=== PATIENT | female | born 1985 | race African-American/Black ===

== ENCOUNTER 2018-05-19 01:14 | Emergency (ER) | payer OTHER ==
[~2018-05-19] VITALS: Ht 162.6 cm; Wt 81.6 kg
[2018-05-19 02:05] LABS: Urine Bacteria NONE SEEN /hpf (None Seen); Urine Blood TRACE /uL (Negative); Urine Specific Gravity 1.009 (1.001-1.035); Urine WBC 2 /hpf (0 - 5)
[2018-05-19 02:30] VITALS: BP 109/71
== END 2018-05-19 05:11 | disposition left against medical advice (07) ==
LOC: ER 01:14
DX: R10.84 Generalized abdominal pain (principal); Z53.21 Procedure and treatment not carried out due to patient leaving prior to being seen by health care provider
CPT/HCPCS: 74176; 81001; 81025

== ENCOUNTER 2019-01-26 22:19 | Emergency (ER) | payer MEDICAID, OTHER ==
[~2019-01-26] VITALS: Ht 162.6 cm; Wt 91.2 kg
[2019-01-26 23:04] LABS: Urine Bacteria NONE SEEN /hpf (None Seen); Urine Blood TRACE /uL (Negative); Urine Specific Gravity 1.026 (1.001-1.035); Urine WBC 1 /hpf (0 - 5)
[2019-01-27 02:14] LABS: Basophils # (auto) 0.1 uL; Basophils % (auto) 1.6 % (0.0-2.0); Eosinophils # (auto) 0.3 uL; Eosinophils % (auto) 3.3 % (0.0-7.0); Hematocrit 37.3 % (36.0-46.0); Hemoglobin 13.1 g/dL (12.2-16.2); Lymphocytes # (auto) 2.5 uL; Lymphocytes % (auto) 32.7 % (10.0-50.0); Mean Corpuscular Hemoglobin 29.9 pg (28.0-32.0); Mean Corpuscular Hgb Conc. 35.1 g/dL (32.0-36.0); Mean Corpuscular Volume 85.2 fL (80.0-100.0); Monocytes # (auto) 0.5 uL; Monocytes % (auto) 6.2 % (0.0-12.0); Neutrophils # (auto) 4.2 uL; Neutrophils % (auto) 56.2 % (37.0-80.0); Nucleated Red Blood Cells % 0.1 %; Platelet Count (auto) 297 10^3/uL (140-450); Red Blood Cells 4.37 10^6/uL (4.0-5.20); Red Cell Distribution Width 13.3 % (11.8-14.3); White Blood Cell 7.6 10^3/uL (4.4-10.8)
[2019-01-27 02:36] LABS: Albumin 3.5 g/dL (3.4-5.0); BUN/Creatinine Ratio 19.2; Calcium 8.5 mg/dL (8.5-10.1); Potassium 3.3 mmol/L (3.5-5.1)
[2019-01-27 02:39] LABS: Bilirubin, Total 0.1 mg/dL (0.2-1.0); Total Protein 7.2 g/dL (6.4-8.2)
[2019-01-27 04:40] VITALS: BP 115/69
== END 2019-01-27 03:43 | disposition home or self-care (01) ==
LOC: ER 22:21
DX: R22.2 Localized swelling, mass and lump, trunk (principal); R10.84 Generalized abdominal pain; R11.2 Nausea with vomiting, unspecified; K59.00 Constipation, unspecified; J45.909 Unspecified asthma, uncomplicated
CPT/HCPCS: 36415; 71250; 80053; 81001; 81025; 85025

== ENCOUNTER 2019-04-05 20:17 | Emergency (ER) | payer MEDICAID ==
[~2019-04-05] VITALS: Ht 162.6 cm; Wt 85.7 kg
[2019-04-05 21:18] LABS: Urine Bacteria NONE SEEN /hpf (None Seen); Urine Blood 3+ /uL (Negative); Urine Specific Gravity 1.014 (1.001-1.035); Urine WBC 51 /hpf (0 - 5)
[2019-04-05 21:24] LABS: Alcohol, Urine < 3.0 mg/dL (0-5); Amphetamine Screen, Urine NEGATIVE (NEGATIVE); Barbiturate Scree,Urine NEGATIVE (NEGATIVE); Benzodiazephine Screen, Urine NEGATIVE (NEGATIVE); Cannabinoid Screen, Urine NEGATIVE (NEGATIVE); Cocaine Screen, Urine POSITIVE (NEGATIVE); Opiate Scree,Urine NEGATIVE (NEGATIVE); Phencyclidine Screen, Urine NEGATIVE (NEGATIVE)
[2019-04-06 00:19] VITALS: BP 111/63
[2019-04-06 00:28] LABS: Basophils # (auto) 0.1 uL; Basophils % (auto) 0.8 % (0.0-2.0); Eosinophils # (auto) 0.5 uL; Eosinophils % (auto) 5.5 % (0.0-7.0); Hematocrit 35.5 % (36.0-46.0); Hemoglobin 11.7 g/dL (12.2-16.2); Lymphocytes # (auto) 2.9 uL; Lymphocytes % (auto) 31.9 % (10.0-50.0); Mean Corpuscular Hemoglobin 29.1 pg (28.0-32.0); Mean Corpuscular Hgb Conc. 32.9 g/dL (32.0-36.0); Mean Corpuscular Volume 88.4 fL (80.0-100.0); Monocytes # (auto) 0.6 uL; Monocytes % (auto) 6.6 % (0.0-12.0); Neutrophils # (auto) 4.9 uL; Neutrophils % (auto) 55.2 % (37.0-80.0); Nucleated Red Blood Cells % 0.1 %; Platelet Count (auto) 314 10^3/uL (140-450); Red Blood Cells 4.02 10^6/uL (4.0-5.20); Red Cell Distribution Width 13.2 % (11.8-14.3); White Blood Cell 8.9 10^3/uL (4.4-10.8)
[2019-04-06] MEDS ORDERED: SODIUM CHLORIDE 0.9% 1,000 ML IV ONE (00:30)
[2019-04-06] MEDS ORDERED: MORPHINE SULFATE 4 MG/ML SYR/VIAL IV ONE (00:30)
[2019-04-06] MEDS ORDERED: cefTRIAXone 1GM/50ML D5W 50 ML IV ONE (00:30)
[2019-04-06] MEDS ORDERED: ONDANSETRON HCL 4 MG/2 ML VIAL IV ONE (00:30)
[2019-04-06 00:45] LABS: Albumin 3.5 g/dL (3.4-5.0); BUN/Creatinine Ratio 14.4; Calcium 8.2 mg/dL (8.5-10.1); Potassium 3.5 mmol/L (3.5-5.1)
[2019-04-06 00:48] LABS: Bilirubin, Total 0.2 mg/dL (0.2-1.0); Total Protein 7.5 g/dL (6.4-8.2)
== END 2019-04-06 00:59 | disposition home or self-care (01) ==
LOC: ER 20:23
DX: N39.0 Urinary tract infection, site not specified (principal); F14.10 Cocaine abuse, uncomplicated; J45.909 Unspecified asthma, uncomplicated
CPT/HCPCS: 36415; 74176; 80053; 80307; 81001; 81025; 83690; 84702; 85025; 96365; 96375; 99284; J0696; J2270; J2405; J7030

== ENCOUNTER 2020-01-10 20:05 | Inpatient (IN) | payer MEDICAID ==
[~2020-01-10] VITALS: Ht 167.6 cm; Wt 86.5 kg
[2020-01-10] MEDS ORDERED: ONDANSETRON HCL 4 MG/2 ML VIAL IV ONE ×2 (21:15→23:45)
[2020-01-10] MEDS ORDERED: MORPHINE SULFATE 4 MG/ML SYR/VIAL IV ONE (21:15)
[2020-01-10] MEDS ORDERED: HYDROmorphone HCL 2 MG/ML VL IV ONE (23:45)
[2020-01-11] MEDS ORDERED: NITROGLYCERIN 0.4 MG SL TAB SL PRN (00:45)
[2020-01-11] MEDS ORDERED: ONDANSETRON HCL 4 MG/2 ML VIAL IV PRN (00:45)
[2020-01-11] MEDS ORDERED: MORPHINE SULF INJ 2 MG/ML SYRINGE 1ML IV PRN (00:45)
[2020-01-11] MEDS: SODIUM CHLORIDE 0.9% 1,000 ML IV SCH ×2 (01:30→17:25)
[2020-01-11] MEDS: HYDROcodone-ACET 5/325MG TAB PO PRN ×3 (01:47→11:31)
[2020-01-11 01:59] LABS: Basophils # (auto) 0.1 10 ^3/uL (0-0.2); Basophils % (auto) 0.5 % (0.0-2.0); Eosinophils # (auto) 0 10 ^3/uL (0-0.8); Eosinophils % (auto) 0.3 % (0.0-7.0); Hemoglobin 11.6 g/dL (12.2-16.2); Lymphocytes # (auto) 1.8 10 ^3/uL (0.4-5.4); Lymphocytes % (auto) 17.3 % (10.0-50.0); Mean Corpuscular Hemoglobin 29.3 pg (28.0-32.0); Mean Corpuscular Hgb Conc. 33.1 g/dL (32.0-36.0); Mean Corpuscular Volume 88.4 fL (80.0-100.0); Monocytes # (auto) 0.7 10 ^3/uL (0-1.3); Monocytes % (auto) 6.2 % (0.0-12.0); Neutrophils % (auto) 75.7 % (37.0-80.0); Nucleated Red Blood Cells % 0.2 %; Platelet Count (auto) 342 10^3/uL (140-450); Red Blood Cells 3.96 10^6/uL (4.0-5.20); Red Cell Distribution Width 13.5 % (11.8-14.3); White Blood Cell 10.5 10^3/uL (4.4-10.8)
[2020-01-11 02:14] LABS: INR 0.97 (0.9-1.15); Partial Thromboplastin Time 25.3 sec (23.0-31.2)
[2020-01-11 02:19] LABS: Albumin 3.7 g/dL (3.4-5.0); BUN/Creatinine Ratio 16.5; Calcium 8.3 mg/dL (8.5-10.1); Potassium 3.7 mmol/L (3.5-5.1)
[2020-01-11 02:21] LABS: Bilirubin, Total 0.3 mg/dL (0.2-1.0); Total Protein 7.3 g/dL (6.4-8.2)
[2020-01-11] MEDS: MORPHINE SULFATE 4 MG/ML SYR/VIAL IV PRN ×2 (03:15→08:23)
[2020-01-11 04:49] VITALS: BP 110/64
[2020-01-11 05:13] VITALS: BP 110/64
--- NOTE | 2020-01-11 07:35 | NUR ---
Opening Shift Note Assumed care of patient, awake and alert. No S/S of distress/SOB. Pt. is in severe pain. This RN will address this per Dr. jackson. Instructed on POC and to call for assist PRN, will continue to monitor for changes Q1hr and PRN.
[2020-01-11] MEDS: PANTOPRAZOLE 40 MG/10 ML VIAL INJ IV SCH (08:21)
[2020-01-11] MEDS: ASCORBIC ACID 500 MG TAB PO SCH ×2 (08:22→21:40)
[2020-01-11] MEDS: ZINC SULFATE 220mg CAP or TAB PO SCH (08:22)
[2020-01-11] MEDS: MULTIPLE VITAMIN TAB PO SCH (08:22)
[2020-01-11 08:59] VITALS: BP 107/60
[2020-01-11] MEDS ORDERED: ENOXAPARIN SOD 40 MG/0.4 ML SYRINGE SC SCH (10:00)
[2020-01-11] MEDS: HYDROmorphone HCL 2 MG/ML VL IV PRN ×5 (12:42→21:56)
[2020-01-11 13:00] VITALS: BP 119/68
[2020-01-11 17:00] VITALS: BP 121/63
--- NOTE | 2020-01-11 17:20 | NUR ---
ASSUMED CARE PATIENT IN 12/06 PAIN. DILAUDID ADMINISTERED. PATIENT IS RESTING IN BED. WILL CONTINUE TO MONITOR EVERY HOUR AND PRN.
[2020-01-11 22:00] VITALS: BP 112/63
[2020-01-12] MEDS: HYDROmorphone HCL 2 MG/ML VL IV PRN ×8 (00:09→22:24)
--- NOTE | 2020-01-12 01:28 | NUR ---
FEELING LIGHT HEADED. PATIENT C/O FEELING LIGHT HEADED . I TOOK A SET OF VITALS. ALL VSS. 131/82 HR 95 O2 98% TEMP 98.0 I ASSURED PATIENT THIS IS MORE THAN LIKELY D/T THE DILAUDID.
[2020-01-12 05:00] VITALS: BP 115/58
--- NOTE | 2020-01-12 06:00 | NUR ---
PT. RECEIVED A NEW IV PLACED ON LEFT UPPER ARM. PT. TOLERATED PROCEDURE WELL. Addendum: 01/12/20 at 2100 by MEREDITH KUMAR RN RN WRONG TIME (CORRECT TIME IS 1800)
[2020-01-12 06:03] LABS: Basophils # (auto) 0 10 ^3/uL (0-0.2); Basophils % (auto) 0.6 % (0.0-2.0); Eosinophils # (auto) 0.1 10 ^3/uL (0-0.8); Eosinophils % (auto) 1.6 % (0.0-7.0); Hematocrit 33.5 % (36.0-46.0); Hemoglobin 11.1 g/dL (12.2-16.2); Lymphocytes # (auto) 1.3 10 ^3/uL (0.4-5.4); Mean Corpuscular Hemoglobin 29.9 pg (28.0-32.0); Mean Corpuscular Hgb Conc. 33.2 g/dL (32.0-36.0); Mean Corpuscular Volume 89.8 fL (80.0-100.0); Monocytes # (auto) 0.7 10 ^3/uL (0-1.3); Monocytes % (auto) 9.9 % (0.0-12.0); Neutrophils # (auto) 5.2 10 ^3/uL (1.6-8.6); Neutrophils % (auto) 69.9 % (37.0-80.0); Platelet Count (auto) 303 10^3/uL (140-450); Red Blood Cells 3.73 10^6/uL (4.0-5.20); Red Cell Distribution Width 13.2 % (11.8-14.3); White Blood Cell 7.4 10^3/uL (4.4-10.8)
[2020-01-12 06:44] LABS: Potassium 3.9 mmol/L (3.5-5.1)
[2020-01-12 06:55] LABS: Albumin 3.6 g/dL (3.4-5.0); BUN/Creatinine Ratio 13.2; Bilirubin, Total 0.6 mg/dL (0.2-1.0); Calcium 8.6 mg/dL (8.5-10.1); Total Protein 7.5 g/dL (6.4-8.2)
--- NOTE | 2020-01-12 07:25 | NUR ---
Opening Shift Note Assumed care of patient, awake and alert. No S/S of distress/SOB. Pt. is in severe pain 9 OUT OF 10. This RN will address this per Dr. jackson. Instructed on POC and to call for assist PRN, will continue to monitor for changes Q1hr and PRN.
[2020-01-12] MEDS: HYDROcodone-ACET 5/325MG TAB PO PRN ×2 (07:49→16:17)
[2020-01-12 09:00] VITALS: BP 106/59
[2020-01-12] MEDS: MULTIPLE VITAMIN TAB PO SCH (09:38)
[2020-01-12] MEDS: ASCORBIC ACID 500 MG TAB PO SCH ×2 (09:38→22:24)
[2020-01-12] MEDS: PANTOPRAZOLE 40 MG/10 ML VIAL INJ IV SCH (09:41)
[2020-01-12] MEDS: ZINC SULFATE 220mg CAP or TAB PO SCH (09:41)
[2020-01-12] MEDS: DOCUSATE SOD 100 MG CAP PO PRN (09:53)
[2020-01-12] MEDS: SODIUM CHLORIDE 0.9% 1,000 ML IV SCH (10:05)
[2020-01-12 13:00] VITALS: BP 106/60
--- NOTE | 2020-01-12 15:30 | NUR ---
THIS RN PAGED HOSPITALIST TO INCREASE PAIN MEDICATION FOR THIS PT. CHANGED TO (1 MG DILAUDID FOR BREAKTHROUGH PAIN AND 7.5 OF NORCO FOR SEVERE PAIN. WILL CONTINUE TO MONITOR PT. Q1 AND PRN. Addendum: 01/12/20 at 2106 by MEREDITH KUMAR RN RN wrong time ([phone])
[2020-01-12 17:00] VITALS: BP 123/65
[2020-01-12] MEDS ORDERED: diphenhdrAMINE HCL 25 MG CAP PO ONE (18:45)
--- NOTE | 2020-01-12 19:00 | NUR ---
Rechecked pt. and pain level has decreased significantly; 3 out of 10.
[2020-01-12 20:00] VITALS: BP 112/62
[2020-01-12] MEDS: HYDROcodone-ACET 7.5/325MG TAB PO PRN (20:34)
[2020-01-13] MEDS: HYDROcodone-ACET 7.5/325MG TAB PO PRN ×2 (03:25→17:43)
[2020-01-13 05:00] VITALS: BP 112/70
[2020-01-13] MEDS: HYDROmorphone HCL 2 MG/ML VL IV PRN ×4 (05:20→20:15)
[2020-01-13 06:21] LABS: Basophils # (auto) 0.1 10 ^3/uL (0-0.2); Basophils % (auto) 0.8 % (0.0-2.0); Eosinophils # (auto) 0.3 10 ^3/uL (0-0.8); Eosinophils % (auto) 4.3 % (0.0-7.0); Hematocrit 33.2 % (36.0-46.0); Hemoglobin 11.1 g/dL (12.2-16.2); Lymphocytes # (auto) 1.1 10 ^3/uL (0.4-5.4); Lymphocytes % (auto) 14.9 % (10.0-50.0); Mean Corpuscular Hgb Conc. 33.4 g/dL (32.0-36.0); Mean Corpuscular Volume 89.8 fL (80.0-100.0); Monocytes # (auto) 0.7 10 ^3/uL (0-1.3); Neutrophils # (auto) 5.5 10 ^3/uL (1.6-8.6); Nucleated Red Blood Cells % 0.1 %; Platelet Count (auto) 307 10^3/uL (140-450); Red Cell Distribution Width 13.3 % (11.8-14.3); White Blood Cell 7.7 10^3/uL (4.4-10.8)
[2020-01-13 06:36] LABS: Potassium 3.8 mmol/L (3.5-5.1)
[2020-01-13 06:41] LABS: Calcium 8.8 mg/dL (8.5-10.1)
--- NOTE | 2020-01-13 07:12 | NUR ---
OPENING SHIFT NOTE Assumed care of patient from overnight caregiver RN. Patient is alert and oriented x4, patient complaining of pain 6/10, pain medications not due at this time. Patient was offered ice packs and accepted, ice pack placed on left knee. She was updated on the plan of care and verbalized understanding. Consents for procedure are not signed as the patient wishes to speak with the MD. Will inform OR. Patient has a metcalf draining cloudy yellow urine to gravity. Bed is locked, in the lowest position, side rails are up x2 and call light is in reach. She was encouraged to call for assistance as needed.
[2020-01-13 09:10] LABS: Urine Bacteria MANY /hpf (None Seen); Urine Blood 1+ /uL (Negative); Urine Specific Gravity 1.014 (1.001-1.035); Urine WBC 49 /hpf (0 - 5); Urine WBC Clumps PRESENT /hpf (None Seen)
[2020-01-13] MEDS ORDERED: HYDROmorphone HCL 2 MG/ML VL ONE (09:15)
[2020-01-13] MEDS ORDERED: fentaNYL CITRATE 100 MCG/2 ML VL ONE (09:15)
[2020-01-13] MEDS ORDERED: PROPOFOL 10 MG/ML 20 ML IV ONE (09:16)
[2020-01-13] MEDS ORDERED: fentaNYL CITRATE 5 ML ONE (09:16)
[2020-01-13] MEDS ORDERED: SODIUM CHLORIDE LOCK 10 ML ONE (09:16)
[2020-01-13] MEDS ORDERED: MIDAZOLAM HCL 1MG/1ML-2 ML VIAL ONE (09:16)
[2020-01-13] MEDS ORDERED: ROCURONIUM 10MG/ML 10ML VIAL IV ONE (09:16)
[2020-01-13] MEDS ORDERED: ONDANSETRON HCL 4 MG/2 ML VIAL ONE (09:16)
[2020-01-13 09:19] VITALS: BP 112/76
[2020-01-13] MEDS: SODIUM CHLORIDE 0.9% 1,000 ML IV SCH ×2 (09:37→18:43)
[2020-01-13] MEDS: ZINC SULFATE 220mg CAP or TAB PO SCH (09:37)
[2020-01-13] MEDS: PANTOPRAZOLE 40 MG/10 ML VIAL INJ IV SCH (09:37)
[2020-01-13] MEDS: ASCORBIC ACID 500 MG TAB PO SCH ×2 (09:38→21:48)
[2020-01-13] MEDS: MULTIPLE VITAMIN TAB PO SCH (09:38)
--- NOTE | 2020-01-13 10:16 | NUR ---
JANE AT BEDSIDE Updated on the patient status, plan of care was discussed with the patient and she verbalized understanding, No new orders received.
--- NOTE | 2020-01-13 11:42 | NUR ---
PATIENT TAKEN TO PREOP Accompanied by this RN and TONE Herr. No signs of distress noted on departure.
[2020-01-13] MEDS ORDERED: METOCLOPRAMIDE HCL 5MG/ml INJ 2ml VIAL IV PRN (11:45)
[2020-01-13] MEDS ORDERED: HYDROmorphone HCL 2 MG/ML VL IV PRN (11:45)
[2020-01-13] MEDS ORDERED: MORPHINE SULFATE 4 MG/ML SYR/VIAL IV PRN (11:45)
[2020-01-13] MEDS ORDERED: MIDAZOLAM HCL 1MG/1ML-2 ML VIAL IV ONE (11:48)
[2020-01-13] MEDS ORDERED: ceFAZolin 1GM/50ML 50 ML IV ONE (11:54)
[2020-01-13] MEDS ORDERED: ceFAZolin 1GM VL ONE (12:21)
[2020-01-13] MEDS ORDERED: BUPIVACAINE 0.25% INJ 50ML VIAL ONE (12:25)
[2020-01-13 13:00] VITALS: BP 114/60
[2020-01-13] MEDS ORDERED: VANCOMYCIN HCL 1000 MG VL ONE (13:12)
[2020-01-13] MEDS ORDERED: ceFAZolin 1GM/50ML 50 ML IV SCH (13:30)
--- NOTE | 2020-01-13 14:42 | NUR ---
PATIENT BACK FROM OR No signs of distress noted. Bed is locked, in the lowest position, side rails up x2 and call light is in reach. She was encouraged to call for assistance as needed.
--- NOTE | 2020-01-13 14:54 | NUR ---
Nutrition Assessment Notes Please refer to link for full assessment notes. Est Energy needs: 7437-5801 kcals (20-23 kcal/kgBW) Est Protein needs: 65-82 gms/day (0.8-1.0 gm/kgBW) Will continue to monitor and reassess prn. Addendum: 01/13/20 at [address] Amended: Links added.
[2020-01-13] MEDS: LACTATED RINGER'S 1,000 ML IV SCH (15:11)
[2020-01-13] MEDS: SODIUM CHLOR 0.9% PF (SALINE LOCK) 10ML VIAL/SYR IV SCH ×2 (15:11→21:48)
[2020-01-13 17:27] VITALS: BP 138/76
--- NOTE | 2020-01-13 18:39 | NUR ---
Patient complaining of 10/10 pain requesting tylenol, will administer as ordered.
[2020-01-13] MEDS: ACETAMINOPHEN 325 MG TAB PO PRN (18:43)
--- NOTE | 2020-01-13 19:25 | NUR ---
Opening Shift Note Received report from Jeimy WAYNE. Assumed care of patient, awake and alert. Patient in mild distress due to post op pain. Instructed on POC and to call for assist PRN. Fall precaution measures in place, will continue to monitor for changes Q1hr and PRN.
[2020-01-13] MEDS: ceFAZolin 1GM/50ML 50 ML IV SCH (20:58)
[2020-01-13 23:54] VITALS: BP 129/74
[2020-01-14] MEDS: HYDROmorphone HCL 2 MG/ML VL IV PRN ×5 (00:53→18:42)
[2020-01-14] MEDS: LACTATED RINGER'S 1,000 ML IV SCH ×2 (01:10→09:30)
[2020-01-14] MEDS: HYDROcodone-ACET 7.5/325MG TAB PO PRN ×3 (02:38→22:07)
[2020-01-14] MEDS: ceFAZolin 1GM/50ML 50 ML IV SCH (03:02)
[2020-01-14] MEDS: ACETAMINOPHEN 325 MG TAB PO PRN (03:44)
[2020-01-14] MEDS: SODIUM CHLOR 0.9% PF (SALINE LOCK) 10ML VIAL/SYR IV SCH ×3 (05:23→22:06)
[2020-01-14 05:26] VITALS: BP 125/64
[2020-01-14 06:12] LABS: Basophils # (auto) 0 10 ^3/uL (0-0.2); Basophils % (auto) 0.3 % (0.0-2.0); Eosinophils # (auto) 0.2 10 ^3/uL (0-0.8); Eosinophils % (auto) 1.9 % (0.0-7.0); Hematocrit 29.5 % (36.0-46.0); Lymphocytes # (auto) 1.2 10 ^3/uL (0.4-5.4); Lymphocytes % (auto) 13.6 % (10.0-50.0); Mean Corpuscular Hemoglobin 30.1 pg (28.0-32.0); Mean Corpuscular Volume 88.5 fL (80.0-100.0); Monocytes # (auto) 0.8 10 ^3/uL (0-1.3); Neutrophils # (auto) 6.6 10 ^3/uL (1.6-8.6); Neutrophils % (auto) 75.2 % (37.0-80.0); Nucleated Red Blood Cells % 0.1 %; Platelet Count (auto) 304 10^3/uL (140-450); Red Blood Cells 3.33 10^6/uL (4.0-5.20); Red Cell Distribution Width 12.9 % (11.8-14.3); White Blood Cell 8.8 10^3/uL (4.4-10.8)
[2020-01-14 06:25] LABS: BUN/Creatinine Ratio 11.7; Calcium 8.3 mg/dL (8.5-10.1); Potassium 3.9 mmol/L (3.5-5.1)
--- NOTE | 2020-01-14 07:30 | NUR ---
OPENING SHIFT NOTE RECEIVED REPORT AND CONTINUATION OF CARE OF PATIENT. AWAKE,ALERT.ORIENTED,SHOWS NO SIGNS OF DISTRESS C/O PAIN, DISCUSSED PLAN OF CARE AND NURSING ROUTINES WITH PATIENT. BED IN LOWEST POSITION, SIDE RAILS UP X2, AND THE CALL LIGHT IS WITHIN REACH,PATIENT REMINDED,INSTRUCTED TO CALL FOR ASSISTANCE,VERBALIZED UNDERSTANDING.
[2020-01-14 08:58] VITALS: BP 117/69
[2020-01-14] MEDS: ASCORBIC ACID 500 MG TAB PO SCH ×2 (10:57→22:06)
[2020-01-14] MEDS: MULTIPLE VITAMIN TAB PO SCH (10:57)
[2020-01-14] MEDS: ENOXAPARIN SOD 40 MG/0.4 ML SYRINGE SC SCH (10:57)
[2020-01-14] MEDS: PANTOPRAZOLE 40 MG/10 ML VIAL INJ IV SCH (10:57)
[2020-01-14] MEDS: ZINC SULFATE 220mg CAP or TAB PO SCH (10:57)
[2020-01-14 13:00] VITALS: BP 125/65
--- NOTE | 2020-01-14 13:00 | NUR ---
BOND CATHETER DISCONTINUED
--- NOTE | 2020-01-14 14:57 | NUR ---
2 attempted made for PT treatment today. Pt refused initial treatment stating she needed pain medication prior. During second attempt, pt is having new IV inserted. Will attempt again later as time permits.
--- NOTE | 2020-01-14 15:00 | NUR ---
PER RN COVERING ME FOR LUNCH,PATIENT GOT OOB ASSISTED BY PAINTER SKI EDGE TO BEDSIDE COMMODE,VERY NERVOUS AND ANXIOUS HEART RATE INCREASES TO 180,PATIENT ASSISTED BACK TO BED,WAS INSTRUCTED TO CALM AND RELAX,HR DOWN TO 111.
[2020-01-14 15:19] LABS: Hematocrit 32.8 % (36.0-46.0)
--- NOTE | 2020-01-14 15:30 | NUR ---
PATIENT VOIDING FREELY
--- NOTE | 2020-01-14 15:30 | NUR ---
RECEIVED A CALL FROM MUTUAL FUND ANALYST NEEDING ORDER FOR HOME HEALTH,HOME P.T. AND WHEEL CHAIR,WILL PAGED Jessa AND GET ORDER
--- NOTE | 2020-01-14 15:45 | NUR ---
PAGED AND INFORMED DR. SHAIKH CRAIG NEEDING HOME HEALTH,HOME PT AND WHEELCHAIR,RECEIVED ORDERS,SEE ORDERS WRITTEN TO CONSULT JOURNAL BOX INSPECTOR FOR ABOVE.
--- NOTE | 2020-01-14 15:45 | NUR ---
PHYSICAL THERAPIST AT BED SIDE ASSISTED PATIENT TO GET OOB,HR INCREASE TO 170,ASSISTED BACK TO BED BY PCara
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
[2020-01-14 17:18] VITALS: BP 126/71
--- NOTE | 2020-01-14 19:20 | NUR ---
Opening Shift Note Received report from Malgorzata WAYNE. Assumed care of patient, awake and alert. No S/S of distress/SOB or pain. Instructed on POC and to call for assist PRN, will continue to monitor for changes Q1hr and PRN.
--- NOTE | 2020-01-14 22:07 | NUR ---
Patient complaints of post op pain at 10/06, patient refused Dilaudid IV. Per patient, her heart rate beats past after taking the IV pain medication and she feels weird. [place] PO given instead, will continue care.
[2020-01-14 22:45] VITALS: BP 125/64
[2020-01-15] MEDS: ACETAMINOPHEN 325 MG TAB PO PRN (03:05)
[2020-01-15 05:28] VITALS: BP 121/67
[2020-01-15] MEDS: SODIUM CHLOR 0.9% PF (SALINE LOCK) 10ML VIAL/SYR IV SCH ×3 (06:00→21:33)
--- NOTE | 2020-01-15 06:14 | NUR ---
Spoke to hospitalist Iván Morales AUTOMATIC PINSETTER ADJUSTER regarding the effect of Dilaudid on the patient and that patient requesting to decrease the dose to 0.5mg. Per hospitalist okay to decrease the dose.
[2020-01-15] MEDS: HYDROmorphone HCL 2 MG/ML VL IV PRN ×4 (06:42→21:34)
--- NOTE | 2020-01-15 07:30 | NUR ---
OPENING SHIFT NOTE RECEIVED REPORT AND CONTINUATION OF CARE OF PATIENT,ASLEEP. NO SIGNS OF DISTRESS OR PAIN. BED IN LOWEST POSITION, SIDE RAILS UP X2, AND THE CALL LIGHT IS WITHIN REACH.
[2020-01-15 08:00] VITALS: BP 115/70
--- NOTE | 2020-01-15 09:45 | NUR ---
Called Bayron LINARES at [facility] [phone] and requested authorization for equipment for the patient, stated to fax the request to [employer] and they will request the auth for the equipment from [place]. Called and spoke with Daisy ALVARADO and made her aware
[2020-01-15] MEDS: HYDROcodone-ACET 7.5/325MG TAB PO PRN ×2 (09:50→19:53)
--- NOTE | 2020-01-15 09:50 | NUR ---
AWAKE,C/O PAIN,MEDICATED WITH NORCO 7.5/325,DISCUSSED THE PLAN OF CARE AND NURSING ROUTINES WITH PATIENT. BED IN LOWEST POSITION, SIDE RAILS UP X2, AND CALL LIGHT IS WITHIN REACH,PATIENT REMINDED,INSTRUCTED TO CALL FOR ASSISTANCE,VERBALIZED UNDERSTANDING.
[2020-01-15] MEDS: MULTIPLE VITAMIN TAB PO SCH (11:24)
[2020-01-15] MEDS: ASCORBIC ACID 500 MG TAB PO SCH ×2 (11:24→21:33)
[2020-01-15] MEDS: ENOXAPARIN SOD 40 MG/0.4 ML SYRINGE SC SCH (11:24)
[2020-01-15] MEDS: PANTOPRAZOLE 40 MG/10 ML VIAL INJ IV SCH (11:25)
[2020-01-15 12:00] VITALS: BP 122/64
--- NOTE | 2020-01-15 12:30 | NUR ---
MD VISIT DR. TOVAR HERE TO SEE AND EXAMINED PATIENT,INFORMED HER OF PATIENT HR GOES UP TO 180 X2 WITH ACTIVITY FROM YESTERDAY (WITH P.T. AND ASSISTING PATIENT TO BEDSIDE COMMODE)RECEIVED ORDER FOR CT CHEST
[2020-01-15] MEDS ORDERED: LEVO500T21 PO (12:39)
[2020-01-15] MEDS ORDERED: ALBUAER3 IN (12:39)
[2020-01-15] MEDS ORDERED: PANT40TA2 PO (12:39)
[2020-01-15] MEDS ORDERED: DOCU-94 PO (12:39)
[2020-01-15] MEDS ORDERED: levoFLOXacin 500MG 100 ML IV ONE (12:45)
[2020-01-15] MEDS ORDERED: APIX2.5T PO (12:52)
[2020-01-15] MEDS ORDERED: IOHEXOL 350 MG/ML 100ML IJ ONE ×2 (13:55→17:53)
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
[2020-01-15 16:59] VITALS: BP 114/68
--- NOTE | 2020-01-15 17:42 | NUR ---
US GUIDED IV insertion IV access obtained, via clean sterile technique by inserting 20 gauge catheter at RIGHT UPPER ARM IN BASILIC VEIN after ONE attempt. IV secured properly. No trauma to site. Patient tolerated well.PRIMARY RN DEMARCO NOTIFIED.
--- NOTE | 2020-01-15 18:10 | NUR ---
TO CT DEPT.FOR CT CHEST TO R/O PE
--- NOTE | 2020-01-15 19:00 | NUR ---
Opening Shift Note Assumed care of patient, awake and alert. For discharge just waiting for CT chest result to rule out PE. No S/S of distress/SOB. Bed in low locked position, call light within reach, side rails upx2. Instructed on POC and to call for assist PRN, will continue to monitor for changes Q1hr and PRN.
--- NOTE | 2020-01-15 19:53 | NUR ---
PATIENT CALLED FOR PAIN MEDICATION. SAW PATIENT CRYING FOR PAIN ON HER LEFT LEG. OFFERING NORCO TAB BUT SHE SAID IT DOESN'T HELP.PATIENT IS FOR DISCHARGE HOME. EDUCATE THE PATIENT SHE WILL BE GOING HOME WITH PAIN PILL. EDUCATE ON RELAXATION TECHNIQUE AND BREATHING TECHNIQUE. SHE TOOK THE PAIN PILL. WILL CONTINUE TO MONITOR.
--- NOTE | 2020-01-15 20:44 | NUR ---
Spoke with Hospitalist Andrew. Gave CT of the chest result. And patients condition. Heart rate is 109-120's at resting and if patient is moving even light move it would go up to 160's for heart rate. Hospitalist let the patient stay overnight. Addendum: 01/15/20 at 2215 by MISAEL ANNE RN RN Pain level is at 10/10
[2020-01-15] MEDS: DOCUSATE SOD 100 MG CAP PO PRN (21:34)
--- NOTE | 2020-01-15 21:34 | NUR ---
Patient requested for IV pain medication. Given and tolerated by patient.
[2020-01-15 22:00] VITALS: BP 117/58
[2020-01-16] MEDS: HYDROcodone-ACET 7.5/325MG TAB PO PRN ×3 (02:20→17:47)
--- NOTE | 2020-01-16 02:20 | NUR ---
Patient requested for pain medication. given and patient tolerated.
[2020-01-16 05:00] VITALS: BP 120/69
[2020-01-16] MEDS: HYDROmorphone HCL 2 MG/ML VL IV PRN ×3 (05:02→21:53)
[2020-01-16] MEDS: SODIUM CHLOR 0.9% PF (SALINE LOCK) 10ML VIAL/SYR IV SCH ×3 (05:34→21:38)
[2020-01-16] MEDS ORDERED: PNEUMOCOCCAL VACC POLYS 25 MCG/0.5 ML VIAL IM ONE (08:00)
--- NOTE | 2020-01-16 08:00 | NUR ---
Opening Shift Note Assumed care of patient, awake and alert. No S/S of distress/SOB, complained of 7/10 left lower leg pain. S/P ORIF of left lower extremity with immobilizer in place. Instructed on POC and to call for assist PRN, will continue to monitor for changes Q1hr and PRN.
[2020-01-16 09:00] VITALS: BP 120/68
[2020-01-16] MEDS: PANTOPRAZOLE 40 MG/10 ML VIAL INJ IV SCH (10:05)
[2020-01-16] MEDS: MULTIPLE VITAMIN TAB PO SCH (10:05)
[2020-01-16] MEDS: ENOXAPARIN SOD 40 MG/0.4 ML SYRINGE SC SCH (10:05)
[2020-01-16] MEDS: ASCORBIC ACID 500 MG TAB PO SCH ×2 (10:05→21:38)
[2020-01-16] MEDS: KETOROLAC TROMETH 30 MG/ML 1ML VIAL IV PRN ×2 (10:08→19:46)
[2020-01-16 10:25] LABS: Magnesium 2.5 mg/dL (1.6-2.6); Potassium 3.5 mmol/L (3.5-5.1)
[2020-01-16 10:29] LABS: Hematocrit 30.8 % (36.0-46.0); Hemoglobin 10.5 g/dL (12.2-16.2)
[2020-01-16 13:00] VITALS: BP 123/63
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
[2020-01-16] MEDS: SODIUM CHLORIDE 0.9% 1,000 ML IV SCH (15:39)
--- NOTE | 2020-01-16 16:50 | NUR ---
Patient still undecided whether to have the pneumococcal vaccine at this admission.
[2020-01-16 17:00] VITALS: BP 128/73
--- NOTE | 2020-01-16 19:05 | NUR ---
Opening Shift Note Assumed care of patient, awake and alert X4. No S/S of distress/SOB. Pain level is 7/10. AM nurse gave norco around 2 hrs ago. Will give pain meds to control pain. S/P ORIF of left leg. Immobilizer in place. Education given on fall precaution for safety. Instructed on POC and to call for assist PRN, will continue to monitor for changes Q1hr and PRN.
--- NOTE | 2020-01-16 19:58 | NUR ---
Paged the hospitalist to relay concern of the patient that she hadn't had a bowel movement yet since she got admitted. She has prn colace but not helping. Will continue to monitor.
[2020-01-16 22:00] VITALS: BP 96/69
--- NOTE | 2020-01-16 22:03 | NUR ---
PAGED HOSPITALIST AGAIN. WAITING FOR CALLBACK.
[2020-01-16] MEDS ORDERED: BISACODYL 10 MG RECT SUPP PR ONE (22:30)
--- NOTE | 2020-01-16 22:32 | NUR ---
OBTAINED AN ORDER FOR BISACODYL 10 MG SUPPOSITORY FROM HOSPITALIST. WILL CARRY ORDER.
[2020-01-16] MEDS: DOCUSATE SOD 100 MG CAP PO PRN (22:47)
--- NOTE | 2020-01-16 23:04 | NUR ---
OBTAINED URINE SAMPLE FOR DRUG TEST AND BISACODYL SUPP GIVEN. Addendum: 01/16/20 at 2306 by MISAEL ANNE RN RN PATIENT TOLERATED.
[2020-01-16 23:42] LABS: Amphetamine Screen, Urine NEGATIVE (NEGATIVE); Barbiturate Scree,Urine NEGATIVE (NEGATIVE); Benzodiazephine Screen, Urine NEGATIVE (NEGATIVE); Cannabinoid Screen, Urine NEGATIVE (NEGATIVE); Cocaine Screen, Urine NEGATIVE (NEGATIVE); Opiate Scree,Urine POSITIVE (NEGATIVE); Phencyclidine Screen, Urine NEGATIVE (NEGATIVE)
--- NOTE | 2020-01-17 00:01 | NUR ---
patient had bowel movement and gave bed bath and total linen change, oral and perineal care. Elevated the left foot. patient tolerated.
[2020-01-17] MEDS: HYDROmorphone HCL 2 MG/ML VL IV PRN ×4 (02:20→15:32)
[2020-01-17 05:00] VITALS: BP 105/60
[2020-01-17] MEDS: SODIUM CHLOR 0.9% PF (SALINE LOCK) 10ML VIAL/SYR IV SCH ×2 (05:43→14:06)
[2020-01-17] MEDS: MULTIPLE VITAMIN TAB PO SCH (09:34)
[2020-01-17] MEDS: ASCORBIC ACID 500 MG TAB PO SCH (09:34)
[2020-01-17] MEDS: ENOXAPARIN SOD 40 MG/0.4 ML SYRINGE SC SCH (09:34)
[2020-01-17] MEDS: PANTOPRAZOLE 40 MG/10 ML VIAL INJ IV SCH (09:34)
[2020-01-17] MEDS: KETOROLAC TROMETH 30 MG/ML 1ML VIAL IV PRN ×2 (09:35→18:17)
[2020-01-17] MEDS: SODIUM CHLORIDE 0.9% 1,000 ML IV SCH (11:10)
[2020-01-17] MEDS ORDERED: TRAM50TA2 PO (13:47)
--- NOTE | 2020-01-17 15:00 | NUR ---
I asked patient if she wanted to take the pneumonia vaccine since she is getting discharge today. Patient stated that she was thinking about it she decided not to get it. Patient educated on the vaccine, patient refused.
--- NOTE | 2020-01-17 17:43 | NUR ---
Patient getting discharged transferred care to Dianne Garduno RN with clinical educator Gaurav as instructed by Ibrahima valdes. Dianne WAYNE completed discharge but could not finalized the discharge orders. Medication reconciliation part had a pending medication therefore discharge could not be finalized. gave me a script of tramadol for patient , but still put the tramadol under the medication reconciliation list and it was listed as pending. IT was called to fix the problem. Awaiting on IT to call back.
--- NOTE | 2020-01-17 18:17 | NUR ---
IT called back and fixed the problem. Patient discharge papers finalized a printed by Dianne WAYNE. Care was transferred back to me since the nurse had to leave. I told patient that her discharge papers are ready but patient said that her family are in traffic and they said they should be here by 7:30pm.
[2020-01-17 19:30] VITALS: BP 115/67
--- NOTE | 2020-01-17 19:40 | NUR ---
Discharge instructions given as ordered. Encourage to follow up with PMD and as instructed. All questions and concerns addressed. Patient verbalized understanding. Medication reconciliation form completed and copy given to patient. IV removed with catheter intact, pressure dressing applied. Telemetry unit returned to ICU. Patient taken to vehicle via personal wheelchair with all personal belongings(crutches), accompanied by this RN and family member. No distress noted at time of departure.
== END 2020-01-17 19:40 | disposition home health service (06) | DRG 313 ==
LOC: ER 20:05 → EDBD 20:05 → TELE 20:06 → TELE-WESTW 01-11 03:30
PROVIDERS: ADMIT Nurse Practitioner Family; ATTEND Internal Medicine
PROC: 0SQD0ZZ Repair Left Knee Joint, Open Approach (ICD-10-PCS; 2020-01-13)
PROC: 0QSH04Z Reposition Left Tibia with Internal Fixation Device, Open Approach (ICD-10-PCS; principal; 2020-01-13 11:58)
DX: S82.252A Displaced comminuted fracture of shaft of left tibia, initial encounter for closed fracture (principal); S82.142A Displaced bicondylar fracture of left tibia, initial encounter for closed fracture; S82.832A Other fracture of upper and lower end of left fibula, initial encounter for closed fracture; N39.0 Urinary tract infection, site not specified; E66.9 Obesity, unspecified; B96.20 Unspecified Escherichia coli [E. coli] as the cause of diseases classified elsewhere; Z68.30 Body mass index [BMI] 30.0-30.9, adult; J45.909 Unspecified asthma, uncomplicated; M25.462 Effusion, left knee; S83.282A Other tear of lateral meniscus, current injury, left knee, initial encounter; Z20.828 Contact with and (suspected) exposure to other viral communicable diseases; V89.2XXA Person injured in unspecified motor-vehicle accident, traffic, initial encounter; Y93.89 Activity, other specified; Y92.410 Unspecified street and highway as the place of occurrence of the external cause; R00.0 Tachycardia, unspecified
CPT/HCPCS: 36415; 71045; 71275; 73562; 73590; 73700; 80048; 80053; 80307; 81001; 81025; 83735; 83880; 84132; 84484; 84702; 85014; 85018; 85025; 85610; 85730; 86850; 86900; 86901; 87086; 87088; 87186; 93005; 93306; 96361; 96374; 96375; 97163; C9113; G0378; J0690; J1885; J1956; J2250; J2405; J2704; J3490

== ENCOUNTER 2023-04-13 16:50 | Emergency (ER) | payer MEDICAID ==
[~2023-04-13 16:50] MED LIST: ALBUAER3 IN; APIX2.5T PO; DOCU-94 PO; LEVO500T31 PO; PANT40TA2 PO
== END 2023-04-13 18:39 | disposition left against medical advice (07) ==
LOC: ER 16:50
DX: R05.9 Cough, unspecified (principal); Z53.21 Procedure and treatment not carried out due to patient leaving prior to being seen by health care provider

== ENCOUNTER 2023-10-10 18:11 | Emergency (ER) | payer MEDICAID ==
[~2023-10-10] VITALS: Ht 162.6 cm; Wt 70.0 kg
[2023-10-10 19:16] LABS: Urine Bacteria None Seen /hpf (None Seen)
[2023-10-10 19:36] LABS: Urine Amorphous Crystal MOD /hpf (None Seen); Urine Blood Negative /uL (Negative); Urine Clarity Turbid (Clear); Urine Color Light-Yellow (Yellow); Urine Mucus FEW (None Seen); Urine Protein, UAD TRACE (Negative); Urine Specific Gravity 1.028 (1.001-1.035); Urine Urobilinogen Normal (Negative); Urine WBC <1 /hpf (0 - 5)
[2023-10-10 21:48] VITALS: BP 108/71; PULSE 91; RESP 20; TEMP 97.8; O2SAT 97
[2023-10-10] MEDS ORDERED: ACE3T PO (22:23)
[2023-10-10] MEDS ORDERED: ZOFR4T PO (22:23)
[2023-10-10] MEDS: ONDANSETRON ODT 4 MG TAB PO ONE (22:29)
[2023-10-10] MEDS: ACETAMINOPHEN/CODEINE#3 (300/30mg) TAB PO ONE (22:29)
== END 2023-10-11 03:46 | disposition home or self-care (01) ==
LOC: ER 18:11
DX: G44.209 Tension-type headache, unspecified, not intractable (principal); R10.2 Pelvic and perineal pain; F41.9 Anxiety disorder, unspecified; J45.909 Unspecified asthma, uncomplicated; F32.9 Major depressive disorder, single episode, unspecified
CPT/HCPCS: 36415; 70450; 81001; 84702; 99284; Q0162

== ENCOUNTER 2024-02-16 11:45 | Emergency (ER) | payer MEDICAID ==
[~2024-02-16 11:45] MED LIST changes: +ACE3T PO; +ZOFR4T PO
== END 2024-02-16 12:28 | disposition left against medical advice (07) ==
LOC: ER 11:45
DX: R07.0 Pain in throat (principal); Z53.21 Procedure and treatment not carried out due to patient leaving prior to being seen by health care provider

== ENCOUNTER 2024-02-24 03:40 | Emergency (ER) | payer MEDICAID ==
[~2024-02-24] VITALS: Ht 162.6 cm; Wt 86.0 kg
--- NOTE | 2024-02-24 04:03 | ED.PDOC ---
HPI Comments 38-year-old female who came to ER for chest pains. Patient states she has been having intermittent episodes of chest pains for the past 2 days. States chest pains are left-sided, burning, intermittent, radiating to her back, occurring usually after meals. Patient was asleep earlier and she woke up with burning left-sided chest pains. Denies any nausea or vomiting or shortness of breath. Patient also complaining of aching right thigh. Chief Complaint: Chest Pain Time Seen by MD: 04:02 Primary Care Provider: RADHA Reviewed Notes: Nurses Notes Allergies: Coded Allergies: NO KNOWN ALLERGIES (Unverified , 05/19/18) Home Meds Active Scripts Ondansetron Odt 4MG Tab (ZOFRAN PO) 4 Mg Tb, 4 MG PO Q8HPRN, #14 TAB 0 Refills ODT TAB-DISSOLVE IN MOUTH, THEN SWALLOW Prov:CHIN COFFEY 10/10/23 Acetaminophen W/ Codeine (Tylenol W/Cod #3) 1 Tab Tb, 1 TAB PO Q6HPRN, #10 TAB 0 Refills Prov:CHIN COFFEY 10/10/23 Apixaban Base (ELIQUIS) 2.5 Mg Tab, 2.5 MG PO BID, #24 TAB Prov:NOEL TOVAR MD 01/15/20 Levofloxacin (Levaquin) 500 Mg Tab, 500 MG PO DAILY, #7 TAB Prov:NOEL TOVAR MD 01/15/20 Albuterol Sulfate (VENTOLIN MDI) 90 Mcg Ih, 90 MCG IN Q6HPRN PRN for 30 Days, #1 INH Prov:NOEL TOVAR MD 01/15/20 Pantoprazole Sodium Sesquihydr (Protonix) 40 Mg Tab, 40 MG PO DAILY, #30 TAB Prov:NOEL TOVAR MD 01/15/20 Docusate Sodium (Colace) 100 Mg Cap, 1 CAP PO BID PRN, #30 CAP Prov:NOEL TOVAR MD 01/15/20 Information Source: Patient Mode of Arrival: Ambulatory Severity: Moderate Timing: Days Duration: Intermittent Prehospital treatment: None Location: Chest (L) Radiation: Back Quality: Burning Onset: With Light Exertion Cardiac Risk Factors: None PE Risk Factors: None History of: None Modifying Factors: Nothing Associated Signs and Symptoms: Back Pain Past Medical History PAST MEDICAL HISTORY: Anxiety, Asthma, Depression Surgical History: Denies all surgeries CAMP PROGRAM DIRECTOR History: No Pertinent CAMP PROGRAM DIRECTOR History Family History Family History: Unknown Social History Smoker: Non-Smoker Alcohol: Denies ETOH Use Drugs: Denies Drug Use Lives In: Home Constitutional: denies: chills, diaphoresis, fatigue, fever, malaise, sweats, weakness, others EENTM: denies: blurred vision, double vision, ear bleeding, ear discharge, ear drainage, ear pain, ear ringing, eye pain, eye redness, hearing loss, mouth pain, mouth swelling, nasal discharge, nose bleeding, nose congestion, nose pain, photophobia, tearing, throat pain, throat swelling, voice changes, others Respiratory: denies: cough, hemoptysis, orthopnea, SOB at rest, shortness of breath, SOB with excertion, stridor, wheezing, others Cardiovascular: reports: chest pain; denies: dizzy spells, diaphoresis, Dyspnea on exertion, edema, irregular heart beat, left arm pain, lightheadedness, palpitations, PND, syncope, others Gastrointestinal: denies: abdomen distended, abdominal pain, blood streaked bowels, constipated, diarrhea, dysphagia, difficulty swallowing, hematemesis, melena, nausea, poor appetite, poor fluid intake, rectal bleeding, rectal pain, vomiting, others Genitourinary: denies: abnormal vagina bleeding, burning, dyspareunia, dysuria, flank pain, frequency, hematuria, incontinence, pain, , vagina discharge, urgency, others Neurological: denies: dizziness, fainting, headache, left sided numbness, left sided weakness, numbness, paresthesia, pre-existing deficit, right sided numbness, right sided weakness, seizure, speech problems, tingling, tremors, weakness, others Musculoskeletal: reports: back pain, muscle pain (Right lower leg pain); denies: gout, joint pain, joint swelling, muscle stiffness, neck pain, others Integumetry: denies: bruises, change in color, change in hair/nails, dryness, laceration, lesions, lumps, rash, wounds, others Allergic/Immunocompromised: denies: Difficulty Healing, Frequent Infections, Hives, Itching, others Hematologic/Lymphatic: denies: anemia, blood clots, easy bleeding, easy bruising, swollen glands, others Endocrine: denies: excessive hunger, excessive sweating, excessive thirst, excessive urination, flushing, intolerance to cold, intolerance to heat, unexplained weight gain, unexplained weight loss, others Psychiatric: denies: anxiety, bipolar disorder, depression, hopeless, panic disorder, schizophrenia, sleepless, suicidal, others Physical Exam General Appearance: No Apparent Distress, Normal HEENT: Normal ENT Inspection, Pharynx Normal, TMs Normal Neck: Full Range of Motion, Non-Tender, Normal, Normal Inspection Respiratory: Chest Non-Tender, Lungs Clear, No Accessory Muscle Use, No Respiratory Distress, Normal Breath Sounds Cardiovascular: No Edema, No JVD, No Murmur, No Gallop, Normal Peripheral Pulses, Regular Rate/Rhythm Breast Exam: Deferred Gastrointestinal: No Organomegaly, Non Tender, No Pulsatile Mass, Normal Bowel Sounds, Soft Genitalia: Deferred Pelvic: Deferred Rectal: Deferred Extremities: No calf tenderness, Normal capillary refill, Normal inspection, Normal range of motion, Non-tender, No pedal edema Musculoskeletal : Apperance: Normal Neurologic: Alert, process validation engineer II-XII nml as Tested, No Motor Deficits, Normal Affect, Normal Mood, No Sensory Deficits Cerebellar Function: Normal Reflexes: Normal Skin: Dry, Normal Color, Warm Lymphatic: No Adenopathy EKG EKG : Pulse Rate (adult): 85 Cardiac Rhythm: NSR Was a procedure done? Was a procedure done?: No CP Differential Dx Differential Diagnosis: Angina, Anxiety / Panic Attack, [place] Differential Diagnosis: Angina, Chest Wall Pain, Costochondritis, Esophageal reflux/spasm, Gastritis, Myocardial Infarction, Pneumonia X-Ray, Labs, Meds, VS Vital Signs Date Time Temp Pulse Resp B/P (MAP) Pulse Ox O2 Delivery O2 Flow Rate FiO2 02/24/24 06:16 92 16 97 Room Air* 0 21 02/24/24 06:16 99.0 92 16 101/58 (72) 97 99.0 02/24/24 04:03 85 02/24/24 03:48 85 02/24/24 03:47 98.1 85 16 113/72 (86) 98 Lab Test 02/24/24 04:47 02/24/24 03:50 Range/Units Troponin I High Sensitivity < 3 L < 3 L </=34 ng/L White Blood Count 6.3 4.4-10.8 10^3/uL Red Blood Count 4.32 4.0-5.20 10^6/uL Hemoglobin 12.8 12.2-16.2 g/dL Hematocrit 38.6 36.0-46.0 % Mean Corpuscular Volume 89.4 80.0-100.0 fL Mean Corpuscular Hemoglobin 29.7 28.0-32.0 pg Mean Corpuscular Hemoglobin Concent 33.2 32.0-36.0 g/dL Red Cell Distribution Width 13.3 11.8-14.3 % Platelet Count 295 140-450 10^3/uL Mean Platelet Volume 8.0 6.9-10.8 fL Neutrophils (%) (Auto) 53.4 37.0-80.0 % Lymphocytes (%) (Auto) 36.8 10.0-50.0 % Monocytes (%) (Auto) 7.1 0.0-12.0 % Eosinophils (%) (Auto) 2.2 0.0-7.0 % Basophils (%) (Auto) 0.5 0.0-2.0 % Neutrophils # (Auto) 3.4 1.6-8.6 10 ^3/uL Lymphocytes # (Auto) 2.3 0.4-5.4 10 ^3/uL Monocytes # (Auto) 0.5 0-1.3 10 ^3/uL Eosinophils # (Auto) 0.1 0-0.8 10 ^3/uL Basophils # (Auto) 0 0-0.2 10 ^3/uL Nucleated Red Blood Cells 0.1 % Sodium Level 137 136-145 mmol/L Potassium Level 4.0 3.5-5.1 mmol/L Chloride Level 106 98-107 mmol/L Carbon Dioxide Level 26 20-31 mmol/L Anion Gap 5 5-15 Blood Urea Nitrogen 18 9-23 mg/dL Creatinine 0.82 0.550-1.02 mg/dL Glomerular Filtration Rate Calc 93 >90 mL/min BUN/Creatinine Ratio 22.0 H 10.0-20.0 Serum Glucose 104 74-106 mg/dL Calcium Level 10.2 8.7-10.4 mg/dL Total Bilirubin 0.2 0.2-1.0 mg/dL Aspartate Amino Transferase (AST) 23 13-40 U/L Alanine Aminotransferase (ALT) 25 7-40 U/L Alkaline Phosphatase 76 46-116 U/L Total Protein 6.8 5.7-8.2 g/dL Albumin 4.3 3.2-4.8 g/dL Time of 1ST Reevaluation: 03:56 Reevaluation 1ST: Unchanged Time of 2ND Reevaluation: 06:00 Reevaluation 2ND: Improved Patient Education/Counseling: Diagnosis, Treatment Family Education/Counseling: No Family Present Departure 1 Departure Time of Disposition: 06:00 Impression: Primary Impression: Atypical chest pain Disposition: 01 HOME / SELF CARE / HOMELESS Condition: Stable Discharged With: Self Critical Care Note Critical Care Time?: No Stability Stability form required: No Heart Score Heart Score: Heart Score Response (Comments) Value History Slightly Suspicious 0 EKG Normal 0 Age <45 0 Risk Factors No known risk factors 0 Troponin Normal limit 0 Total 0 I personally scribed for FARNAZ FARR MD ([email or web address]) on 02/24/24 at 04:03. Electronically submitted by Obed Saavedra ([email or web address]). FARNAZ FARR MD Feb 24, 2024 04:03
[2024-02-24 04:10] LABS: Basophils # (auto) 0 10 ^3/uL (0-0.2); Basophils % (auto) 0.5 % (0.0-2.0); Eosinophils # (auto) 0.1 10 ^3/uL (0-0.8); Eosinophils % (auto) 2.2 % (0.0-7.0); Hematocrit 38.6 % (36.0-46.0); Hemoglobin 12.8 g/dL (12.2-16.2); Lymphocytes # (auto) 2.3 10 ^3/uL (0.4-5.4); Lymphocytes % (auto) 36.8 % (10.0-50.0); Mean Corpuscular Hemoglobin 29.7 pg (28.0-32.0); Mean Corpuscular Hgb Conc. 33.2 g/dL (32.0-36.0); Mean Corpuscular Volume 89.4 fL (80.0-100.0); Monocytes # (auto) 0.5 10 ^3/uL (0-1.3); Monocytes % (auto) 7.1 % (0.0-12.0); Neutrophils # (auto) 3.4 10 ^3/uL (1.6-8.6); Neutrophils % (auto) 53.4 % (37.0-80.0); Nucleated Red Blood Cells % 0.1 %; Platelet Count (auto) 295 10^3/uL (140-450); Red Blood Cells 4.32 10^6/uL (4.0-5.20); Red Cell Distribution Width 13.3 % (11.8-14.3); White Blood Cell 6.3 10^3/uL (4.4-10.8)
--- NOTE | 2024-02-24 04:55 | DVH ---
CHEST RADIOGRAPH Indication: chest pain Technique: Single frontal view of the chest was obtained COMPARISON: CHEST XRAY 1 VIEW on DOS: 01/11/20 FINDINGS: Lines and Tubes: None Lungs: Clear Pleura: No effusion. No pneumothorax. Cardiomediastinal contours: Unremarkable Bones: Unremarkable IMPRESSION: No acute disease.
[2024-02-24 05:07] LABS: Alanine Aminotransferase 25 U/L (7-40); Albumin 4.3 g/dL (3.2-4.8); Alkaline Phosphatase 76 U/L (46-116); Anion Gap 5 (5-15); Blood Urea Nitrogen 18 mg/dL (9-23); Calcium 10.2 mg/dL (8.7-10.4); Carbon Dioxide 26 mmol/L (20-31); Chloride 106 mmol/L (98-107); Glucose 104 mg/dL (74-106); Sodium 137 mmol/L (136-145)
[2024-02-24 05:08] LABS: Bilirubin, Total 0.2 mg/dL (0.2-1.0); Total Protein 6.8 g/dL (5.7-8.2)
[2024-02-24 06:06] LABS: Aspartate Aminotransferase 23 U/L (13-40)
[2024-02-24 06:16] VITALS: BP 101/58; PULSE 92; RESP 16; TEMP 99; O2SAT 97
--- NOTE | 2024-02-24 06:57 | ECG ---
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
== END 2024-02-24 06:16 | disposition home or self-care (01) ==
LOC: ER 03:40
DX: R07.89 Other chest pain (principal); J45.909 Unspecified asthma, uncomplicated; F41.9 Anxiety disorder, unspecified; F32.A Depression, unspecified; Z79.01 Long term (current) use of anticoagulants; Z79.899 Other long term (current) drug therapy
CPT/HCPCS: 36415; 71045; 80053; 84484; 85025; 93005

== ENCOUNTER 2024-06-29 10:17 | Emergency (ER) | payer MEDICAID ==
[~2024-06-29] VITALS: Ht 162.6 cm; Wt 93.6 kg
--- NOTE | 2024-06-29 10:34 | ECG ---
[facility] Test Date: 2024-06-29 Test Time: 10:28:56 Pat Name: PAU TOBIAS Department: ER Room: Gender: F Hop Farmer: NIA : 1985 Requested By: MIKE NOWAK Order Number: [id number] Reading MD: Measurements Intervals Stella Rate: 64 P: 25 AL: 131 QRS: 34 QRSD: 94 T: -1 QT: 419 QTc: 433 Interpretive Statements Sinus rhythm Low voltage, precordial leads Borderline T abnormalities, inferior leads Please click the below link to view image of tracing.
[2024-06-29 10:41] VITALS: BP 99/61; RESP 20; TEMP 98.8; O2SAT 99
[2024-06-29 10:58] VITALS: PULSE 64
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
[2024-06-29 11:23] LABS: Basophils # (auto) 0 10 ^3/uL (0-0.2); Basophils % (auto) 0.9 % (0.0-2.0); Eosinophils # (auto) 0.1 10 ^3/uL (0-0.8); Eosinophils % (auto) 2.2 % (0.0-7.0); Hematocrit 36.6 % (36.0-46.0); Hemoglobin 12.3 g/dL (12.2-16.2); Lymphocytes # (auto) 1.7 10 ^3/uL (0.4-5.4); Lymphocytes % (auto) 38.2 % (10.0-50.0); Mean Corpuscular Hemoglobin 29.4 pg (28.0-32.0); Mean Corpuscular Hgb Conc. 33.7 g/dL (32.0-36.0); Mean Corpuscular Volume 87.3 fL (80.0-100.0); Monocytes # (auto) 0.3 10 ^3/uL (0-1.3); Neutrophils # (auto) 2.2 10 ^3/uL (1.6-8.6); Neutrophils % (auto) 50.7 % (37.0-80.0); Nucleated Red Blood Cells % 0.1 %; Platelet Count (auto) 347 10^3/uL (140-450); Red Blood Cells 4.19 10^6/uL (4.0-5.20); Red Cell Distribution Width 13.3 % (11.8-14.3); White Blood Cell 4.4 10^3/uL (4.4-10.8)
[2024-06-29 11:32] LABS: Chloride 105 mmol/L (98-107); Potassium 3.7 mmol/L (3.5-5.1); Sodium 139 mmol/L (136-145)
[2024-06-29 11:33] LABS: Anion Gap 7 (5-15); Calcium 9.6 mg/dL (8.7-10.4); Carbon Dioxide 27 mmol/L (20-31)
[2024-06-29 11:38] LABS: BUN/Creatinine Ratio 18.7 (10.0-20.0); Blood Urea Nitrogen 14 mg/dL (9-23); Glucose 97 mg/dL (74-106)
[2024-06-29 11:38] LABS: Urine Bacteria FEW /hpf (None Seen); Urine Blood TRACE /uL (Negative); Urine Clarity Cloudy (Clear); Urine Color Yellow (Yellow); Urine Protein, UAD TRACE (Negative); Urine Specific Gravity 1.026 (1.001-1.035); Urine Squamous Epithelial Cell MANY /hpf (<5); Urine Urobilinogen Normal (Negative); Urine WBC 31 /HPF (0-5)
[2024-06-29 11:48] LABS: Amphetamine Screen, Urine Neg (NEGATIVE); Barbiturate Scree,Urine Neg (NEGATIVE); Benzodiazephine Screen, Urine Neg (NEGATIVE); Cannabinoid Screen, Urine Neg (NEGATIVE); Cocaine Screen, Urine Neg (NEGATIVE); Opiate Scree,Urine Neg (NEGATIVE); Phencyclidine Screen, Urine Neg (NEGATIVE)
[2024-06-29] MEDS: ONDANSETRON ODT 4 MG TAB PO ONE (12:13)
[2024-06-29] MEDS ORDERED: NITR-87 PO (12:14)
[2024-06-29] MEDS ORDERED: BACDST PO (12:16)
== END 2024-06-29 12:22 | disposition home or self-care (01) ==
LOC: ER 10:17
DX: N39.0 Urinary tract infection, site not specified (principal); F41.9 Anxiety disorder, unspecified; J45.909 Unspecified asthma, uncomplicated; F32.A Depression, unspecified; Z79.899 Other long term (current) drug therapy; Z79.01 Long term (current) use of anticoagulants
CPT/HCPCS: 36415; 80048; 80307; 81001; 81025; 82947; 85025; 93005; 99284; Q0162; 82962

== ENCOUNTER 2024-07-04 07:57 | Emergency (ER) | payer MEDICAID ==
[~2024-07-04] VITALS: Ht 162.6 cm; Wt 95.0 kg
[~2024-07-04 07:57] MED LIST changes: +BACDST PO
[2024-07-04 08:36] VITALS: BP 111/70; PULSE 98; RESP 16; TEMP 97.7; O2SAT 97
[2024-07-04] MEDS: HYDROcodone-ACET 10/325MG TAB PO ONE (08:47)
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
[2024-07-04] MEDS ORDERED: IBUP-1456 PO (09:37)
--- NOTE | 2024-07-04 09:39 | DVH ---
CLINICAL INDICATION: trauma TECHNIQUE: 3 radiographic views of the left foot were obtained. Comparison: None FINDINGS/IMPRESSION: There is a displaced fracture of the distal fibula.
== END 2024-07-04 09:51 | disposition home or self-care (01) ==
LOC: ER 07:57
DX: S82.832A Other fracture of upper and lower end of left fibula, initial encounter for closed fracture (principal); J45.909 Unspecified asthma, uncomplicated; F41.9 Anxiety disorder, unspecified; F32.A Depression, unspecified; Z79.01 Long term (current) use of anticoagulants; Z79.1 Long term (current) use of non-steroidal anti-inflammatories (NSAID); Z79.899 Other long term (current) drug therapy; Y04.8XXA Assault by other bodily force, initial encounter; Y93.89 Activity, other specified; Y92.89 Other specified places as the place of occurrence of the external cause; Y99.8 Other external cause status
CPT/HCPCS: 29515; 73610; 73630

== ENCOUNTER 2024-07-11 01:23 | Emergency (ER) | payer MEDICAID ==
[~2024-07-11] VITALS: Ht 162.6 cm; Wt 92.7 kg
[~2024-07-11 01:23] MED LIST changes: +IBUP-1456 PO
[2024-07-11 01:46] VITALS: BP 122/66; PULSE 97; RESP 16; TEMP 97.9; O2SAT 97
--- NOTE | 2024-07-11 01:51 | ED.PDOC ---
Musculoskeletal HPI Comments 38 year old female presents to ER for pain management of left ankle pain. Patient states she was diagnosed with a left ankle fracture in ER here 1 week ago and reports the ibuprofen she was prescribed is not providing her relief of her left ankle pain and is requesting a stronger pain medication prescription in ER today. Notes that she was referred to "[facility]" by her PCP and is awaiting a call back from her orthopedic office on an appointment date. She rates her current pain a 10/10 to left lateral ankle with radiation towards left foot. Patient also states that she removed her splint because it was "hurting her" and presents to ER with arnulfo wrap to left ankle and use of crutches. Denies numbness/tingling, calf pain, fever or any further symptoms/complaints Chief Complaint: Lower Extremity Time Seen by MD: 01:27 Primary Care Provider: ZACHARY Shultz Notes: Nurses Notes, Medications, Allergies Allergies: Coded Allergies: NO KNOWN ALLERGIES (Unverified , 05/19/18) Home Meds Active Scripts Acetaminophen W/ Codeine (Tylenol W/Cod #3) 1 Tab Tb, 1 TAB PO Q6HPRN, #10 TAB 0 Refills Prov:CHIN COFFEY 07/11/24 Ibuprofen (Ibuprofen) 800 Mg Tab, 1 TAB PO TID, #30 TAB Prov:MIKE NOWAK 07/04/24 Sulfamethoxazole W/Trimethopri (Bactrim Ds Tablet) 1 Tab Tb, 1 TAB PO BID for 7 Days, #14 TAB Prov:MIKE NOWAK 06/29/24 Ondansetron Odt 4MG Tab (ZOFRAN PO) 4 Mg Tb, 4 MG PO Q8HPRN, #14 TAB 0 Refills ODT TAB-DISSOLVE IN MOUTH, THEN SWALLOW Prov:CHIN COFFEY 10/10/23 Acetaminophen W/ Codeine (Tylenol W/Cod #3) 1 Tab Tb, 1 TAB PO Q6HPRN, #10 TAB 0 Refills Prov:CHIN COFFEY 10/10/23 Apixaban Base (ELIQUIS) 2.5 Mg Tab, 2.5 MG PO BID, #24 TAB Prov:NOEL TOVAR MD 01/15/20 Levofloxacin (Levaquin) 500 Mg Tab, 500 MG PO DAILY, #7 TAB Prov:NOEL TOVAR MD 01/15/20 Albuterol Sulfate (VENTOLIN MDI) 90 Mcg Ih, 90 MCG IN Q6HPRN PRN for 30 Days, #1 INH Prov:NOEL TOVAR MD 01/15/20 Pantoprazole Sodium Sesquihydr (Protonix) 40 Mg Tab, 40 MG PO DAILY, #30 TAB Prov:NOEL TOVAR MD 01/15/20 Docusate Sodium (Colace) 100 Mg Cap, 1 CAP PO BID PRN, #30 CAP Prov:NOEL TOVAR MD 01/15/20 Information Source: Patient Mode of Arrival: Wheelchair Past Medical History PAST MEDICAL HISTORY: Anxiety, Asthma, Depression Surgical History: Denies all surgeries 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 Family History Family History: Unknown Social History Smoker: Non-Smoker Alcohol: Denies ETOH Use Drugs: Denies Drug Use Lives In: Home Constitutional: denies: chills, diaphoresis, fatigue, fever, malaise, sweats, weakness, others EENTM: denies: blurred vision, double vision, ear bleeding, ear discharge, ear drainage, ear pain, ear ringing, eye pain, eye redness, hearing loss, mouth pain, mouth swelling, nasal discharge, nose bleeding, nose congestion, nose pain, photophobia, tearing, throat pain, throat swelling, voice changes, others Respiratory: denies: cough, hemoptysis, orthopnea, SOB at rest, shortness of breath, SOB with excertion, stridor, wheezing, others Cardiovascular: denies: chest pain, dizzy spells, diaphoresis, Dyspnea on exertion, edema, irregular heart beat, left arm pain, lightheadedness, palpitations, PND, syncope, others Gastrointestinal: denies: abdomen distended, abdominal pain, blood streaked bowels, constipated, diarrhea, dysphagia, difficulty swallowing, hematemesis, melena, nausea, poor appetite, poor fluid intake, rectal bleeding, rectal pain, vomiting, others Genitourinary: denies: abnormal vagina bleeding, burning, dyspareunia, dysuria, flank pain, frequency, hematuria, incontinence, pain, , vagina discharge, urgency, others Neurological: denies: dizziness, fainting, headache, left sided numbness, left sided weakness, numbness, paresthesia, pre-existing deficit, right sided numbness, right sided weakness, seizure, speech problems, tingling, tremors, weakness, others Musculoskeletal: reports: others (As stated in HPI) Integumetry: denies: bruises, change in color, change in hair/nails, dryness, laceration, lesions, lumps, rash, wounds, others Allergic/Immunocompromised: denies: Difficulty Healing, Frequent Infections, Hives, Itching, others Hematologic/Lymphatic: denies: anemia, blood clots, easy bleeding, easy bruising, swollen glands, others Endocrine: denies: excessive hunger, excessive sweating, excessive thirst, excessive urination, flushing, intolerance to cold, intolerance to heat, unexplained weight gain, unexplained weight loss, others Psychiatric: denies: anxiety, bipolar disorder, depression, hopeless, panic disorder, schizophrenia, sleepless, suicidal, others Physical Exam General Appearance: No Apparent Distress, Obese HEENT: PERRL/EOMI Neck: Full Range of Motion, Non-Tender, Normal Respiratory: Chest Non-Tender, Lungs Clear, No Accessory Muscle Use, No Respiratory Distress, Normal Breath Sounds Cardiovascular: No Murmur, No Gallop, Regular Rate/Rhythm Breast Exam: Deferred Gastrointestinal: NOT DONE Genitalia: Deferred Pelvic: Deferred Rectal: Deferred Extremities: No calf tenderness, Normal capillary refill, Normal range of motion Musculoskeletal : Extremity Location: Ankle (TTP/moderate swelling/ecchymosis noted to left lateral malleolus. No TTP to left foot noted. No further skin changes noted. Pulses intact) Neurologic: Alert, No Motor Deficits, Normal Affect, Normal Mood, No Sensory Deficits Cerebellar Function: Normal Reflexes: Normal Skin: Dry, Warm Peripheral Pulses: 2+ femoral (R), 2+ femoral (L), 2+ dorsalis pedis (R), 2+ dorsalis pedis (L) Lymphatic: No Adenopathy Was a procedure done? Was a procedure done?: No Sedation Sedation?: No Differential Diagnosis EXT Differential Diagnosis: Deep Vein Thrombosis, Dislocation, Strain, Neurovascular injury X-Ray, Labs, Meds, VS Vital Signs Date Time Temp Pulse Resp B/P (MAP) Pulse Ox O2 Delivery O2 Flow Rate FiO2 07/11/24 01:46 97 Room Air* 0 21 07/11/24 01:46 97.9 97 16 122/66 (84) 97 97.9 07/11/24 01:40 97.9 97 16 122/66 (84) 97 97.9 Current Medications Medications (Trade) Dose Ordered Sig/Vicky Route Start Time Stop Time Status Last Admin Acetaminophen/ Hydrocodone Bitart ([place] 5/325MG Tab) 1 tab ONCE ONCE PO 07/11/24 02:00 07/11/24 02:01 DC 07/11/24 02:01 Ondansetron HCl (Zofran Po) 4 mg ONCE ONCE PO 07/11/24 02:00 07/11/24 02:01 DC 07/11/24 02:00 [place] 5/325 mg p.o. ordered Zofran 4 mg p.o. ordered Patient neurovascularly intact and reported improvement in symptoms prior to discharge Previous chart visit reviewed Left posterior short-leg splint applied Advised on nonweightbearing left leg and on continued use of crutches Advised on elevation and alternate ice on/off as needed for pain/swelling Advised to follow up with PCP and orthopedics in 1-2 days Patient verbalized understanding and agreeable with current plan of care Advised to return to ER immediately if symptoms worsen Time of 1ST Reevaluation: 01:20 Reevaluation 1ST: N/A Patient Education/Counseling: Diagnosis, Treatment, Prognosis, Need For Follow Up Family Education/Counseling: No Family Present Departure 1 Departure Time of Disposition: 01:48 Impression: Primary Impression: Left fibular fracture Qualified Codes: S82.832D - Other fracture of upper and lower end of left fibula, subsequent encounter for closed fracture with routine healing Disposition: 01 HOME / SELF CARE / HOMELESS Condition: Stable e-Prescriptions Hydrocodone-Acetaminophen (Hydrocodone Bitartrate/AC 5-325 mg) 1 Tab Tab 1 TAB PO Q6HPRN, #10 TAB 0 Refills Prov: CHIN COFFEY 07/11/24 Discharged With: Friend Critical Care Note Critical Care Time?: No Stability Stability form required: No Heart Score Heart Score: Heart Score Response (Comments) Value History N/A 0 EKG N/A 0 Age N/A 0 Risk Factors N/A 0 Troponin N/A 0 Total 0 CHIN COFFEY July 11, 2024 01:51
[2024-07-11] MEDS: ONDANSETRON ODT 4 MG TAB PO ONE (02:00)
[2024-07-11] MEDS: HYDROcodone-ACET 5/325MG TAB PO ONE (02:01)
[2024-07-11] MEDS ORDERED: HYDR-4902 PO (02:30)
== END 2024-07-11 02:42 | disposition home or self-care (01) ==
LOC: ER 01:23
DX: S82.832A Other fracture of upper and lower end of left fibula, initial encounter for closed fracture (principal); J45.909 Unspecified asthma, uncomplicated; F32.A Depression, unspecified; F41.9 Anxiety disorder, unspecified; Z79.01 Long term (current) use of anticoagulants; Z79.1 Long term (current) use of non-steroidal anti-inflammatories (NSAID); Z79.899 Other long term (current) drug therapy; X58.XXXA Exposure to other specified factors, initial encounter; Y93.89 Activity, other specified; Y92.89 Other specified places as the place of occurrence of the external cause; Y99.8 Other external cause status
CPT/HCPCS: 29515; 99283; Q0162

== ENCOUNTER 2024-07-25 02:23 | Emergency (ER) | payer MEDICAID ==
[~2024-07-25] VITALS: Ht 162.6 cm; Wt 92.7 kg
[~2024-07-25 02:23] MED LIST changes: +HYDR-4902 PO
--- NOTE | 2024-07-25 02:35 | ECG ---
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
[2024-07-25 02:45] LABS: Basophils # (auto) 0.1 10 ^3/uL (0-0.2); Eosinophils # (auto) 0.2 10 ^3/uL (0-0.8); Eosinophils % (auto) 2.6 % (0.0-7.0); Hematocrit 37.1 % (36.0-46.0); Hemoglobin 12.2 g/dL (12.2-16.2); Lymphocytes # (auto) 2.4 10 ^3/uL (0.4-5.4); Lymphocytes % (auto) 38.7 % (10.0-50.0); Mean Corpuscular Hemoglobin 29.2 pg (28.0-32.0); Mean Corpuscular Volume 88.6 fL (80.0-100.0); Monocytes # (auto) 0.4 10 ^3/uL (0-1.3); Monocytes % (auto) 6.4 % (0.0-12.0); Neutrophils # (auto) 3.2 10 ^3/uL (1.6-8.6); Neutrophils % (auto) 51.3 % (37.0-80.0); Nucleated Red Blood Cells % 0.1 %; Platelet Count (auto) 337 10^3/uL (140-450); Red Blood Cells 4.19 10^6/uL (4.0-5.20); Red Cell Distribution Width 13.5 % (11.8-14.3); White Blood Cell 6.3 10^3/uL (4.4-10.8)
[2024-07-25 02:52] LABS: Chloride 106 mmol/L (98-107); Potassium 3.9 mmol/L (3.5-5.1); Sodium 138 mmol/L (136-145)
[2024-07-25 02:53] LABS: Anion Gap 8 (5-15); Calcium 8.9 mg/dL (8.7-10.4); Carbon Dioxide 24 mmol/L (20-31)
[2024-07-25 02:58] LABS: BUN/Creatinine Ratio 16.5 (10.0-20.0); Blood Urea Nitrogen 13 mg/dL (9-23)
--- NOTE | 2024-07-25 03:15 | DVH ---
Examination: CXRP Clinical Indication: Comparison: None. Technique: Frontal radiograph of the chest was obtained. Findings: Lungs are clear and well expanded, with no pulmonary infiltrate or pleural effusion. There is no pneumothorax. The cardiomediastinal silhouette is within normal limits. No acute osseous abnormality is seen. Impression: No acute cardiopulmonary disease is seen. Electronically Signed 07/25/2024 03:13 Ralph De Leon
[2024-07-25 03:32] LABS: Glucose 115 mg/dL (74-106)
--- NOTE | 2024-07-25 03:40 | ECG ---
[facility] Test Date: 2024-07-25 Test Time: 03:27:46 Pat Name: PAU TOBIAS Department: ED Room: Gender: F Manager Clinic: [facility] : 1985 Requested By: EZEKIEL CANSECO Order Number: [id number] Reading MD: Hector Schmitz Measurements Intervals [place] Rate: 79 P: 42 CO: 164 QRS: 46 QRSD: 91 T: 32 QT: 388 QTc: 445 Interpretive Statements Sinus rhythm Electronically Signed On 07-28-2024 22:11:00 PDT by Hector Schmitz Please click the below link to view image of tracing.
[2024-07-25 04:16] VITALS: BP 111/61; PULSE 80; RESP 20; TEMP 97.8; O2SAT 99
== END 2024-07-25 04:20 | disposition home or self-care (01) ==
LOC: ER 02:23
DX: R00.2 Palpitations (principal); F32.A Depression, unspecified; J45.909 Unspecified asthma, uncomplicated; F41.9 Anxiety disorder, unspecified; Z79.01 Long term (current) use of anticoagulants; Z79.1 Long term (current) use of non-steroidal anti-inflammatories (NSAID); Z79.899 Other long term (current) drug therapy
CPT/HCPCS: 36415; 71045; 80048; 84484; 85025; 93005

== ENCOUNTER 2024-09-16 19:23 | Emergency (ER) | payer MEDICAID ==
[~2024-09-16] VITALS: Ht 162.6 cm; Wt 96.3 kg
--- NOTE | 2024-09-16 19:34 | ED.PDOC ---
HPI (NEURO) HPI Comments 38-YEAR-OLD FEMALE PRESENTS TO ED FOR CC OF JENKINS X 3 DAYS, DESCRIBED R SIDED PRESSURE AND OCULAR "PRESSURE" LIKE DISCOMFORT. DENIES N/V. NO OTHER NEURO DEFICITS. 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 History Family History Family History: Unknown Social History Smoker: Non-Smoker Alcohol: Denies ETOH Use Drugs: Denies Drug Use Lives In: Home Constitutional: denies: chills, diaphoresis, fatigue, fever, malaise, sweats, weakness, others EENTM: reports: eye pain, eye redness, others (EYE PAIN RIGHT AND CLEAR DRAINAGE); denies: blurred vision, double vision, ear bleeding, ear discharge, ear drainage, ear pain, ear ringing, hearing loss, mouth pain, mouth swelling, nasal discharge, nose bleeding, nose congestion, nose pain, photophobia, tearing, throat pain, throat swelling, voice changes Respiratory: denies: cough, hemoptysis, orthopnea, SOB at rest, shortness of breath, SOB with excertion, stridor, wheezing, others Cardiovascular: denies: chest pain, dizzy spells, diaphoresis, Dyspnea on exertion, edema, irregular heart beat, left arm pain, lightheadedness, palpitations, PND, syncope, others Gastrointestinal: denies: abdomen distended, abdominal pain, blood streaked bowels, constipated, diarrhea, dysphagia, difficulty swallowing, hematemesis, melena, nausea, poor appetite, poor fluid intake, rectal bleeding, rectal pain, vomiting, others Genitourinary: denies: abnormal vagina bleeding, burning, dyspareunia, dysuria, flank pain, frequency, hematuria, incontinence, pain, , vagina di scharge, urgency, others Neurological: reports: headache; denies: dizziness, fainting, left sided numbness, left sided weakness, numbness, paresthesia, pre-existing deficit, right sided numbness, right sided weakness, seizure, speech problems, tingling, tremors, weakness, others Musculoskeletal: denies: back pain, gout, joint pain, joint swelling, muscle pain, muscle stiffness, neck pain, others Integumetry: denies: bruises, change in color, change in hair/nails, dryness, laceration, lesions, lumps, rash, wounds, others Allergic/Immunocompromised: denies: Difficulty Healing, Frequent Infections, Hives, Itching, others Hematologic/Lymphatic: denies: anemia, blood clots, easy bleeding, easy bruising, swollen glands, others Endocrine: denies: excessive hunger, excessive sweating, excessive thirst, excessive urination, flushing, intolerance to cold, intolerance to heat, unexplained weight gain, unexplained weight loss, others Psychiatric: denies: anxiety, bipolar disorder, depression, hopeless, panic disorder, schizophrenia, sleepless, suicidal, others Physical Exam General Appearance: No Apparent Distress, Normal HEENT: Normal ENT Inspection, Pharynx Normal, TMs Normal Neck: Full Range of Motion, Non-Tender Respiratory: Lungs Clear, No Respiratory Distress, Normal Breath Sounds Cardiovascular: No Edema, No JVD, No Murmur, No Gallop, Normal Peripheral Pulses, Regular Rate/Rhythm Breast Exam: Deferred Gastrointestinal: No Organomegaly, Non Tender, No Pulsatile Mass, Normal Bowel Sounds, Soft Genitalia: Deferred Pelvic: Deferred Rectal: Deferred Extremities: Normal capillary refill, Normal range of motion, Non-tender, No pedal edema Musculoskeletal : Apperance: Normal Neurologic: Alert, No Motor Deficits, Normal Affect, Normal Mood, No Sensory Deficits Cerebellar Function: Normal Reflexes: Normal Skin: Dry, Normal Color, Warm Lymphatic: No Adenopathy Was a procedure done? Was a procedure done?: No Differential Diagnosis (SZ) Headache: Cluster, Migraine, Epidural Hemorrhage, Intracerebral Hemorrhage, Subarachnoid Hemorrhage, Subdural Hemorrhage, Mass Lesion, Meningitis, Post- Traumatic, Sinusitis X-Ray, Labs, Meds, VS Vital Signs Date Time Temp Pulse Resp B/P (MAP) Pulse Ox O2 Delivery O2 Flow Rate FiO2 09/16/24 23:43 97.8 82 20 99/62 (74) 96 97.8 09/16/24 19:23 98.4 86 18 117/71 (86) 98 98.4 Current Medications Medications (Trade) Dose Ordered Sig/Vicky Route Start Time Stop Time Status Last Admin Clonazepam (KlonoPIN TABLET) 1 mg ONCE ONCE PO 09/17/24 00:30 09/17/24 00:31 DC 09/17/24 01:02 Ibuprofen (Motrin Tablet) 600 mg ONCE ONCE PO 09/17/24 00:30 09/17/24 00:31 DC 09/17/24 01:02 Acetaminophen (Tylenol Tablet Or Capsule) 500 mg ONCE ONCE PO 09/17/24 00:30 09/17/24 00:31 DC 09/17/24 01:03 X-Ray, Labs, Meds, VS Comment Patient given Klonopin 1 mg p.o., for sudden onset of panic attack. Patient given ibuprofen 600 mg and Tylenol 500 mg p.o. reports improvement in pain and anxiety requesting discharge at this time. Patient called her significant other for right home. Advised to rest increase p.o. fluids with electrolytes. Advised to follow up with her PCP in two days. He is currently on Ativan for her anxiety advised her not to take any tonight since she got a dose of Klonopin patient indicates understanding and agrees with discharge plan of care. Time of 1ST Reevaluation: 19:28 Reevaluation 1ST: Unchanged Time of 2ND Reevaluation: 01:10 Reevaluation 2ND: Improved Patient Education/Counseling: Diagnosis, Treatment, Prognosis, Need For Follow Up Family Education/Counseling: No Family Present Departure 1 Departure Time of Disposition: 01:10 Impression: Primary Impression: Tension headache Additional Impression: Anxiety Disposition: 01 HOME / SELF CARE / HOMELESS Condition: Stable Discharged With: Significant Other Critical Care Note Critical Care Time?: No Stability Stability form required: LUNA Laureano Sep 16, 2024 19:34
[2024-09-16] MEDS ORDERED: PROCHLORPERAZINE EDISYLATE 5 MG/ML 2ML VIAL IV ONE (19:45)
[2024-09-16] MEDS ORDERED: SODIUM CHLORIDE 0.9% 1,000 ML IV ONE (19:45)
[2024-09-16] MEDS ORDERED: KETOROLAC TROMETH 30 MG/ML 1ML VIAL IV ONE (19:45)
[2024-09-16 23:43] VITALS: BP 99/62; PULSE 82; RESP 20; TEMP 97.8; O2SAT 96
[2024-09-17] MEDS: IBUPROFEN 600 MG TAB PO ONE (01:02)
[2024-09-17] MEDS: clonazePAM 0.5 MG TAB PO ONE (01:02)
[2024-09-17] MEDS: ACETAMINOPHEN 500 MG TAB or CAP PO ONE (01:03)
== END 2024-09-17 01:44 | disposition home or self-care (01) ==
LOC: ER 19:23
DX: G44.209 Tension-type headache, unspecified, not intractable (principal); F41.9 Anxiety disorder, unspecified; J45.909 Unspecified asthma, uncomplicated; F32.A Depression, unspecified
CPT/HCPCS: J1100; J1885

== ENCOUNTER 2025-01-04 02:12 | Emergency (ER) | payer MEDICAID ==
[~2025-01-04] VITALS: Ht 162.6 cm; Wt 101.5 kg
[2025-01-04 02:18] VITALS: O2SAT 97
[2025-01-04] MEDS: KETOROLAC TROMETH 60MG/2ML VIAL IM ONE (04:05)
[2025-01-04] MEDS: ACETAMINOPHEN 500 MG TAB or CAP PO ONE (04:05)
[2025-01-04 04:20] VITALS: BP 118/78; PULSE 79; RESP 16; TEMP 98.2
[2025-01-04] MEDS ORDERED: METH4PAK PO (04:34)
[2025-01-04] MEDS ORDERED: TIZA-142 PO (04:34)
--- NOTE | 2025-01-04 04:35 | ED.PDOC ---
Eye-HPI HPI Comments PT CAME TO THE ER WITH CC OF RIGHT EYE PRESSURE AND PAIN WITH ASSOCIATED HEADACHE. PT STATES blurry vision. PT IS A&OX4 RR EVEN AND REGULAR NO DISTRESS NOTED AT THIS TIME. DENIES FEVERS, CHILLS, NAUSEA, VOMITING, INJURY, OR BLACK CURRENT ACROSS EYE. Chief Complaint: Eye Problem Time Seen by MD: 02:22 Primary Care Provider: ZACHARY Shultz Notes: Nurses Notes, Medications, Allergies Allergies: Coded Allergies: NO KNOWN ALLERGIES (Unverified , 05/19/18) Home Meds Active Scripts Tizanidine Hydrochloride (Tizanidine Hcl) 4 Mg Tab, 4 MG PO BID PRN for 5 Days, #10 TAB Prov:LUNA ANGUIANO AWNING E[employer]OR 01/04/25 Methylprednisolone (Medrol Dosepak) 4 Mg Darron, 4 MG PO UD for 6 Days, #21 TAB UAD Prov:LUNA ANGUIANO 01/04/25 Hydrocodone-Acetaminophen (Hydrocodone Bitartrate/AC 5-325 mg) 1 Tab Tab, 1 TAB PO Q6HPRN, #10 TAB 0 Refills Prov:CHIN COFFEY 07/11/24 Ibuprofen (Ibuprofen) 800 Mg Tab, 1 TAB PO TID, #30 TAB Prov:MIKE NOWAK 07/04/24 Sulfamethoxazole W/Trimethopri (Bactrim Ds Tablet) 1 Tab Tb, 1 TAB PO BID for 7 Days, #14 TAB Prov:MIKE NOWAK 06/29/24 Ondansetron Odt 4MG Tab (ZOFRAN PO) 4 Mg Tb, 4 MG PO Q8HPRN, #14 TAB 0 Refills ODT TAB-DISSOLVE IN MOUTH, THEN SWALLOW Prov:CHIN COFFEY 10/10/23 Acetaminophen W/ Codeine (Tylenol W/Cod #3) 1 Tab Tb, 1 TAB PO Q6HPRN, #10 TAB 0 Refills Prov:CHIN COFFEY 10/10/23 Apixaban Base (ELIQUIS) 2.5 Mg Tab, 2.5 MG PO BID, #24 TAB Prov:NOEL TOVAR MD 01/15/20 Levofloxacin (Levaquin) 500 Mg Tab, 500 MG PO DAILY, #7 TAB Prov:NOEL TOVAR MD 01/15/20 Albuterol Sulfate (VENTOLIN MDI) 90 Mcg Ih, 90 MCG IN Q6HPRN PRN for 30 Days, #1 INH Prov:NOEL TOVAR MD 01/15/20 Pantoprazole Sodium Sesquihydr (Protonix) 40 Mg Tab, 40 MG PO DAILY, #30 TAB Prov:NOEL TOVAR MD 01/15/20 Docusate Sodium (Colace) 100 Mg Cap, 1 CAP PO BID PRN, #30 CAP Prov:NOEL TOVAR MD 01/15/20 Information Source: Patient Mode of Arrival: Ambulatory Past Medical History PAST MEDICAL HISTORY: Anxiety, Asthma, Depression Surgical History: Denies all surgeries PIECE DYER History: No Pertinent PIECE DYER History Family History Family History: Unknown Social History Smoker: Non-Smoker Alcohol: Denies ETOH Use Drugs: Denies Drug Use Lives In: Home All Other Systems: Reviewed and Negative (SEE HPI) Physical Exam General Appearance: No Apparent Distress, Normal HEENT: Fundus (R) (WNL), Normal ENT Inspection, PERRL/EOMI, Pharynx Normal, TMs Normal Neck: Full Range of Motion, Non-Tender Respiratory: Lungs Clear, No Respiratory Distress, Normal Breath Sounds Cardiovascular: No Edema, No JVD, No Murmur, No Gallop, Normal Peripheral Pulses, Regular Rate/Rhythm Breast Exam: Deferred Gastrointestinal: Non Tender, Soft Genitalia: Deferred Pelvic: Deferred Rectal: Deferred Extremities: Normal range of motion, No pedal edema Musculoskeletal : Apperance: Normal Neurologic: Alert, No Motor Deficits, Normal Affect, Normal Mood, No Sensory Deficits Cerebellar Function: Normal Reflexes: NOT DONE Skin: Dry, Normal Color, Warm Lymphatic: No Adenopathy Was a procedure done? Was a procedure done?: No EENT DIFF Eye: Corneal Ulceration, Foreign Body-Conjunctiva, Foreign Body-Corneal, Foreign Body-Intraocular, Foreign Body-Lid, Globe Rupture, Iritis/Uveitis, Orbital Cellulits, Periorbital Cellulits, Retinal Artery Occlusion, Retinal Vein Occlusion, Subconjunctival Hemorrhag, Ultraviolet Keratitis, Virtreous Hemorrhage X-Ray, Labs, Meds, VS Vital Signs Date Time Temp Pulse Resp B/P (MAP) Pulse Ox O2 Delivery O2 Flow Rate FiO2 01/04/25 04:20 98.2 79 16 118/78 (91) 98.2 01/04/25 02:18 97.6 93 20 112/80 97 97.6 Current Medications Medications (Trade) Dose Ordered Sig/Vicky Route Start Time Stop Time Status Last Admin Ketorolac Tromethamine (Toradol Injection) 60 mg ONCE ONCE IM 01/04/25 02:30 01/04/25 02:31 DC 01/04/25 04:05 Dexamethasone Sodium Phosphate (Decadron Injection) 10 mg ONCE ONCE IM 01/04/25 02:30 01/04/25 02:31 DC 01/04/25 04:05 Acetaminophen (Tylenol Tablet Or Capsule) 500 mg ONCE ONCE PO 01/04/25 02:30 01/04/25 02:31 DC 01/04/25 04:05 X-Ray, Labs, Meds, VS Comment Patient reports moderate improvement Toradol 60 mg IM and Decadron 10 mg IM, refused Tylenol. Script trial of Medrol Dosepak. Along with muscle relaxer advised take medication as prescribed side effects discussed. Advised to rest increase p.o. fluids electrolytes. Advised to follow up with her PCP in 2-3 days as necessary ER return precautions given patient indicates understanding agrees with discharge plan of care Time of 1ST Reevaluation: 02:22 Reevaluation 1ST: Unchanged Time of 2ND Reevaluation: 04:34 Reevaluation 2ND: Improved Patient Education/Counseling: Diagnosis, Treatment, Need For Follow Up Family Education/Counseling: No Family Present SEPSIS Sepsis Screen Date sepsis recognized/suspect: Jan 04, 2025 Time Sepsis recognized/suspect: 220 Recent Procedure: No On Antibiotic Therapy: No Respiratory Rate >20: No Heart Rate >90: No Temp<36 C (96.8 F) or >38.3 C: No SBP <90 or MAP <65 mmHG: No New Acute Mental Status Change: No Is the patient on CPAP, BIPAP,: No Vital Signs Date Time Temp Pulse Resp B/P (MAP) Pulse Ox O2 Delivery O2 Flow Rate FiO2 01/04/25 04:20 98.2 79 16 118/78 (91) 98.2 01/04/25 02:18 97.6 93 20 112/80 97 97.6 Medications Medications Dose Ordered Sig/Vicky Route Start Time Stop Time Status Last Admin Dose Admin Acetaminophen 500 mg ONCE ONCE PO 01/04/25 02:30 01/04/25 02:31 DC 01/04/25 04:05 Dexamethasone Sodium Phosphate 10 mg ONCE ONCE IM 01/04/25 02:30 01/04/25 02:31 DC 01/04/25 04:05 Ketorolac Tromethamine 60 mg ONCE ONCE IM 01/04/25 02:30 01/04/25 02:31 DC 01/04/25 04:05 Departure 1 Departure Time of Disposition: 04:33 Impression: Primary Impression: Ocular migraine Disposition: 01 HOME / SELF CARE / HOMELESS Condition: Stable e-Prescriptions Tizanidine Hydrochloride (Tizanidine Hcl) 4 Mg Tab 4 MG PO BID PRN for 5 Days, #10 TAB Prov: LUNA ANGUIANO 01/04/25 Methylprednisolone (Medrol Dosepak) 4 Mg Darron 4 MG PO UD for 6 Days, #21 TAB UAD Prov: LUNA ANGUIANO 01/04/25 Discharged With: Self Critical Care Note Critical Care Time?: No Stability Stability form required: No LUNA ANGUIANO Jan 04, 2025 04:35
== END 2025-01-04 04:45 | disposition home or self-care (01) ==
LOC: ER 02:12
DX: G43.109 Migraine with aura, not intractable, without status migrainosus (principal); J45.909 Unspecified asthma, uncomplicated; Z79.899 Other long term (current) drug therapy
CPT/HCPCS: 96372; 99284; J1100; J1885